=== PATIENT | female | born 1950 | race Caucasian/White ===

== ENCOUNTER 2023-09-04 07:28 | Emergency (ER) | payer OTHER, SELFPAY ==
[2023-09-04] VITALS (7 sets, daily range): BP systolic 140–150; BP diastolic 74–88; PULSE 59–72; RESP 18; TEMP 36.8; O2SAT 97–100; BMI 23.5
--- NOTE | 2023-09-04 07:47 | DI.US.S_ITS ---
PROCEDURE: US PERIPH VENOUS LOW EXTREM LT INDICATIONS: high dimer swelling TECHNIQUE: Real-time imaging, as well as color and pulse Doppler interrogation, were performed of the lower extremity deep veins from the inguinal ligament to the popliteal fossa, with documentation of the visualized calf veins. COMPARISON: [facility], CR, XR FOOT LT MIN 3V, 09/04/2023, 7:48. FINDINGS: The common femoral, femoral, popliteal, and the visualized calf veins are normally compressible, and free of intraluminal thrombus. Color and pulse Doppler demonstrate normal phasic intraluminal flow. There is normal augmentation response to distal compression maneuver. IMPRESSION: No findings of lower extremity deep venous thrombosis. Dictated by: Lexa An M.D. on 09/04/2023 at 8:23 Approved by: Lexa An M.D. on 09/04/2023 at 8:23
--- NOTE | 2023-09-04 07:47 | DI.RAD.S_ITS ---
PROCEDURE: XR FOOT LT MIN 3V INDICATIONS: pain for weeks TECHNIQUE: 3 views of the foot were acquired. COMPARISON: None. FINDINGS: Bones: No fractures or dislocations. Small calcaneal spur. Mild degenerative changes. No suspicious bony lesions. Soft tissues: No tibiotalar joint effusion. Achilles tendon appears normal. IMPRESSION: No fracture identified. Dictated by: Sylvester Armenta M.D. on 09/04/2023 at 8:22 Approved by: Sylvester Armenta M.D. on 09/04/2023 at 8:24
--- NOTE | 2023-09-04 07:54 | ED.EXTPRO ---
HPI - Extremity Problem General Chief complaint: Extremity Problem,Nontraumatic Stated complaint: rule out blood clot Time Seen by Provider: 09/04/23 07:40 Source: patient Mode of arrival: Ambulatory History of Present Illness HPI Narrative: Patient is a 72-year-old female without significant past medical history presenting today with left leg swelling and foot pain. She denies any injuries she thought it might get better but she continues to have pain and swelling. [place] thinks may be she is had problems since then. She just kept thinking it would go away. She did have some pain in the arch of her foot but that went away. She is previously had plantar fasciitis but this does not feel like that. She finally went to her primary care provider no x-rays were done blood work was ordered. She does have an elevated D-dimer and was instructed to come to the ED for evaluation. She denies any chest pain or shortness of breath. No fever or chills. She is currently in a walking boot. Was suspected that she might have a tendinitis. Related Data Allergies Allergy/AdvReac Type Severity Reaction Status Date / Time No Known Drug Allergies Allergy Verified 09/04/23 07:48 Patient History Social History Smoking Status: Never smoker Smoking Status: Never smoker Exam Initial Vital Signs Initial Vital Signs: Vital Signs Blood Pressure 147/88 H 09/04/23 07:38 GENERAL: Alert pleasant well-appearing 72-year-old female and in [no acute] distress. HEENT: Head atraumatic,EOMI, pupils reactive, face symmetric, [moist] mucous membranes CARDIOVASCULAR: Regular rate and rhythm without murmurs, rubs or gallops. RESPIRATORY: Breath sounds equal bilaterally, no wheezes rales or rhonchi. EXTREMITIES: Normal range of motion, no clubbing or edema. Neurovascularly intact Left lower extremity she does have some swelling in her left foot good distal pedal pulse no erythema, minimal tenderness in the Achilles distal pedal pulse in no obvious bony deformity some very mild midfoot pain no significant pain in November NEUROLOGICAL: Alert and oriented x4. SKIN: Warm, dry, no laceration, no petechiae, no rashes or lesions. Course Orders Ordered: ED Orders 09/04/23 07:47 US periph venous low extrem lt Stat XR foot LT min 3V Stat Vital Signs Vital signs: Vital Signs - 8 hr 09/04/23 07:38 09/04/23 07:39 09/04/23 07:43 Temperature 98.3 F Pulse Rate 72 70 Respiratory Rate 18 Blood Pressure 147/88 H 140/88 Pulse Oximetry 100 100 Oxygen Delivery Method Room Air 09/04/23 08:00 09/04/23 08:30 Temperature Pulse Rate 59 L 61 Respiratory Rate Blood Pressure Pulse Oximetry 97 97 Oxygen Delivery Method MDM - Extremity (Nontraumatic) Imaging Data Extremity x-ray #1: Radiologist's Impression: PROCEDURE: XR FOOT LT MIN 3V INDICATIONS: pain for weeks TECHNIQUE: 3 views of the foot were acquired. COMPARISON: None. FINDINGS: Bones: No fractures or dislocations. Small calcaneal spur. Mild degenerative changes. No suspicious bony lesions. Soft tissues: No tibiotalar joint effusion. Achilles tendon appears normal. IMPRESSION: No fracture identified. Dictated by: Sylvester Armenta M.D. on 09/04/2023 at 8:22 US - DVT: Radiologist's Impression: PROCEDURE: US PERIPH VENOUS LOW EXTREM LT INDICATIONS: high dimer swelling TECHNIQUE: Real-time imaging, as well as color and pulse Doppler interrogation, were performed of the lower extremity deep veins from the inguinal ligament to the popliteal fossa, with documentation of the visualized calf veins. COMPARISON: [facility], , XR FOOT LT MIN 3V, 09/04/2023, 7:48. FINDINGS: The common femoral, femoral, popliteal, and the visualized calf veins are normally compressible, and free of intraluminal thrombus. Color and pulse Doppler demonstrate normal phasic intraluminal flow. There is normal augmentation response to distal compression maneuver. IMPRESSION: No findings of lower extremity deep venous thrombosis. Dictated by: Lexa An M.D. on 09/04/2023 at 8:23 [facility] Narrative Medical decision making narrative: Patient is a 72-year-old female without significant medical history presenting today with ongoing left ankle and foot pain. X-ray is negative for injury. She did have an elevated D-dimer as an outpatient but ultrasound is negative for DVT. At this time agree with probable diagnosis tendinitis or sprain. She already has a walking boot. At this time no need for any other work up. No concern for pulmonary embolism this time, she has a negative ultrasound and no symptoms or abnormal vitals. Imaging has been reviewed by myself, and negative Discharge Plan Departure Patient Disposition: Home Clinical Impression: Tendonitis Instructions: DI for Tendinitis Activity Restrictions/Additional Instructions: *You have been diagnosed with tendinitis/sprain *What to do: At this time her x-ray and ultrasound are negative. Wear boot if it helps make it feel better. Elevate and ice. Supportive care. *Continue to take medications as directed *Follow up with your primary care provider in 2-3 days or call [phone] *Return to ER if you should have increasing pain swelling redness fever or any new, worsening or concerning symptoms Stand Alone Forms: Patient Portal/API
== END 2023-09-04 09:39 | disposition home or self-care (01) ==
PROVIDERS: Emergency Provider Emergency Medicine
DX: M76.9 Unspecified enthesopathy, lower limb, excluding foot (principal)
CPT/HCPCS: 73630; 93971; 99281; 99283